=== PATIENT | female | born 1955 | race Two or more races ===

== ENCOUNTER 2018-02-21 05:12 | Day surgery (SDC) | payer OTHER ==
[~2018-02-21 05:12] MED LIST: ATORVASTATIN CA40 MG PO; CENTRUM ADULTS1 EACH PO; CLONAZEPAM0.5 MG PO; COZAAR25 MG PO; FLOXETINE PO; FOLGARD TABLET1 EACH PO; GEMFIBROZIL600 MG PO; GLUCOSAMINE PO; RESTORIL30 M1 PO
== END 2018-02-21 20:10 | disposition home or self-care (01) ==
LOC: CIR.AMB 05:12
DX: N84.0 Polyp of corpus uteri (principal); D25.0 Submucous leiomyoma of uterus